=== PATIENT | female | born 1965 | race African-American/Black ===

== ENCOUNTER 2018-05-28 18:19 | Emergency (ER) | payer BC ==
[~2018-05-28] VITALS: Ht 167.6 cm; Wt 73.5 kg
[2018-05-28 18:21] VITALS: BP 137/75
[2018-05-28 19:03] LABS: BASOPHILS # (AUTO) 0.1 /CMM (0.0-0.2); BASOPHILS % (AUTO) 0.9 % (0.0-2.0); EOSINOPHILS % (AUTO) 3.6 % (0.0-6.0); HEMATOCRIT 39 % (33-45); HEMOGLOBIN 12.4 g/dL (11.5-14.8); LYMPHOCYTES # (AUTO) 2.5 /CMM (0.8-4.8); LYMPHOCYTES % (AUTO) 33.4 % (20.0-44.0); MEAN CORPUSCULAR HGB CONC 32 g/dl (31.0-36.0); MEAN CORPUSCULAR VOLUME 76 fL (82-100); MONOCYTES # (AUTO) 0.4 /CMM (0.1-1.30); MONOCYTES % (AUTO) 5.8 % (2.0-12.0); NEUTROPHILS # (AUTO) 4.2 /CMM (1.8-8.9); NEUTROPHILS % (AUTO) 56.3 % (43.0-81.0); PLATELET COUNT (AUTO) 243 /CMM (150-450); RDW COEFFICIENT OF VARIATION 15.5 (11.5-15.0); RED BLOOD CELL COUNT(AUTO) 5.07 MIL/uL (4.0-5.2); WHITE BLOOD COUNT (AUTO) 7.5 K/uL (4.3-11.0)
--- NOTE | 2018-05-28 19:12 | NUR ---
SOB AND DAVIS CALF PAIN TODAY, SUDDEN ONSET, DENIES TRAUMA. PT STS "I'M WORRIED ABOUT A CLOT". DENIES CP, DIZZINESS, N/V, WEAKNESS, KOHLI @ THIS TIME. PT'S GETTING DUPLEX @ BS R/O DVT. PT REFUSED SALINE LOCK INSERTION, AWARE.
[2018-05-28 19:17] LABS: CALCIUM, SERUM 9.3 mg/dL (8.5-10.1); CARBON DIOXIDE 32 mmol/L (21-32); CHLORIDE 105 mmol/L (98-107); GLUCOSE 93 mg/dL (74-106); POTASSIUM 3.4 mmol/L (3.5-5.1); SODIUM SERUM 139 mmol/L (136-145); UREA NITROGEN, BLOOD 15 mg/dL (7-18)
[2018-05-28 19:20] LABS: INR 0.93 (0.85-1.15)
[2018-05-28 19:26] LABS: TROPONIN I < 0.017 ng/mL (0.00-0.056)
[2018-05-28] MEDS ORDERED: POTASSIUM CHLORIDE 20 MEQ TAB.PRT.SR PO ONE ×2 (20:00→20:06)
--- NOTE | 2018-05-28 20:25 | NUR ---
PT LEFT & SIGNED AMA FORM & REFUSED EKG, AWARE.
== END 2018-05-28 20:26 | disposition left against medical advice (07) ==
LOC: ER 18:20
DX: M79.662 Pain in left lower leg (principal); M79.661 Pain in right lower leg; R05 Cough; R06.02 Shortness of breath; Z88.0 Allergy status to penicillin
CPT/HCPCS: 36415; 80048; 84484; 85025; 85378; 85730; 93970; 99285; A4606; Z7610